=== PATIENT | female | born 1970 | race Caucasian/White ===

== ENCOUNTER → 2017-03-12 | Outpatient (CLI) | payer MEDICARE ==
--- NOTE | 2017-03-12 21:45 | PN ---
This is a 47-year-old female patient who is coming in for followup regarding narcolepsy and obstructive sleep apnea. The patient also has degenerative ( ) disorder and depression. During her latest evaluation in June of 2016 the patient had gotten more anxious and depressed. She was having anxiety attacks despite being on Buspar. I have recommended to her that she see a psychiatrist. Meanwhile, the patient was seen by her primary care physician, Dr. Rankin, and she was started on nortriptyline at a dose of 75 mg p.o. daily. Since that treatment initiation the patient has gained around 40 to 50 pounds. She is currently down to 10 mg, as she did not want to take the medication, mainly due to her weight gain. She is still on Buspar. She is also taking Adderall 30 mg 2 tablets in the morning, one in the evening, and this is mainly for narcolepsy treatment. 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 I am concerned that her obstructive sleep apnea is getting worse, especially with her 40- to 50-pound weight gain. The patient is not utilizing her CPAP ( ) she tried to go back on her CPAP unit and she failed to respond. I checked her machine, and she has not used it for the past 180 days. I went back to my earlier records. She was set at a pressure of 8 cm of water, and during her latest visit I switched her to an Auto CPAP mode with a pressure minimum of 4, maximum of 20, with an EPR of 3. She has an AirFit P10 nasal pillow. Despite all this adjustment, the patient is unable to tolerate the machine. She tells me that she is having feelings of suffocation. I tried out various pressures today in the office during my evaluation. I tried her on a pressure of 7, 8, 9 and 10. At the pressures of 9 and 10, the patient felt that the pressure was quite high, and at the pressures of 7 and below, she felt the pressure was too low. As such, I was unable to reach a compromise with her. I think she needs another CPAP titration to make further adjustments. BP is 109/66, pulse 93, respiration 16, temperature 98.3. Weight is 185. BMI is 31. EPWORTH score is 7. GENERAL APPEARANCE: Calm, comfortable. HEENT: Crowding of posterior pharynx. No goiter or neck mass. LUNGS: Clear to auscultation. HEART: Heart sounds are regular rate and rhythm. Normal S1, S2. ABDOMEN: Soft, nontender. No organomegaly. EXTREMITIES: No edema. No cyanosis or clubbing. IMPRESSION: 1. Narcolepsy without cataplexy, on Adderall 40 mg in the morning and 20 mg in the evening. 2. Obstructive sleep apnea; unable to tolerate CPAP machine. The patient has gained around 40 pounds over the past year or so; this was essentially drug-induced. 3. Generalized anxiety disorder. 4. Bipolar disorder/depression. 5. Amitriptyline-induced weight gain. 6. Chronic hypersomnia. 7. Chronic headaches. 8. Chronic pain. PLAN: 1. Encourage weight loss. 2. Eliminate amitriptyline. 3. Follow up with her primary care physician or Psychiatry regarding treatment of her anxiety/depression/bipolar disorder. 4. The patient obviously needs another CPAP titration to make adjustments on her CPAP machine and act accordingly. She is using an AirFit P10 nasal pillow; and different mask interfaces will be also evaluated and studied. 5. Continue Adderall without any dosage modifications. 6. Improve sleep hygiene measures. 7. Will continue to follow.
== END | disposition home or self-care (01) ==
LOC: SLEEP 14:14
PROVIDERS: ATTEND Internal Medicine Critical Care Medicine
DX: G47.419 Narcolepsy without cataplexy (principal); G47.33 Obstructive sleep apnea (adult) (pediatric); Z79.899 Other long term (current) drug therapy; F41.9 Anxiety disorder, unspecified; F32.9 Major depressive disorder, single episode, unspecified

== ENCOUNTER → 2018-04-25 | Outpatient (CLI) | payer MEDICARE | END | disposition home or self-care (01) | LOC: CPPFTMAIN 14:27 | PROVIDERS: ATTEND Otolaryngology | DX: J45.909 Unspecified asthma, uncomplicated (principal) | CPT/HCPCS: 94060; 94726; 94729 ==

== ENCOUNTER → 2019-08-04 | Outpatient (CLI) | payer MEDICARE, OTHER ==
--- NOTE | 2019-08-04 18:02 | PN ---
PROGRESS NOTE SLEEP CENTER PROGRESS NOTE: This is a followup for a 49-year-old female patient who has been diagnosed with a combination of obstructive sleep apnea and narcolepsy, type 2. The patient had her last evaluation here in the sleep center on 03/18/2017. I was trying to make adjustments on her CPAP unit back then to make her treatment more successful. Going back to my records dating back as early as 2013, it was becoming clear to me that the patient was not making an effort to utilize her CPAP. She had symptomatic obstructive sleep apnea and she had undergone successful CPAP titration. She was titrated to a CPAP pressure of 8. She was also tried on an APAP mode. Nevertheless, despite my ongoing efforts, she has not been compliant, and with each visitation she has made different excuses not to use her machine. As far as her narcolepsy, she was managed with stimulants; she was taking Adderall 30 mg two tablets in the morning and one tablet in the afternoon. I came to find out that I was renewing her medication over the past 2-1/2 years and she was taking it on a regular basis. She did not make any effort to come in to see me in followup on her narcolepsy and make sure the treatment was going well. Today she shows up; this appointment was made as we realized that the patient had not been seen in our office for almost 2-1/2 years. Upon further discussion it has become more clear to me that the patient's main visitation was to renew her Adderall medication. I reviewed the rest of the medication. The patient has been on Ativan, taking it on an as-needed basis for anxiety; this was given to her by Dr. Rankin. She was taking Requip 2 mg at bedtime, given to her by Dr. Rankin's office. On and off she is still using Ambien, and I am not sure who is giving her the medication. She is on Celexa for chronic anxiety and depression. The rest of her medication includes: 1. Nexium 40 mg p.o. daily. 2. Valtrex 1 gram daily. 3. Toprol-XL 25 mg p.o. daily. 4. Ventolin on an as-needed basis. 5. Tricor 145 mg p.o. daily. Her current Moorhead score is 8. She denies having any sleep paralysis, hallucinations or cataplexy. She feels very tired. She states that she is depressed and, according to her, for almost a year she did not leave the house, as she was feeling down and she was having significant low energy levels. She has also a multitude of complaints, including headache, hair loss, tiredness, fatigue, sleepiness, occasional insomnia and mood changes. PHYSICAL EXAMINATION: CURRENT VITAL SIGNS: Blood pressure 138/75, pulse 96, respirations 16, temperature 98.0. Weight is 171, height 5 feet 4 inches, BMI 28.7. Moorhead score is 8. GENERAL APPEARANCE: Calm, comfortable. HEAD: Atraumatic, normocephalic. NECK: Supple. No JVD. No goiter or neck masses. LUNGS: Clear to auscultation. HEART: Heart sounds are regular rate and rhythm. Normal S1, S2. No S3, S4. No murmurs. ABDOMEN: Soft, nontender. No organomegaly. EXTREMITIES: No edema. No cyanosis or clubbing. IMPRESSION: 1. Narcolepsy, type 2, without cataplexy. 2. Obstructive sleep apnea; noncompliant with CPAP therapy. 3. Chronic anxiety/depression/bipolar disorder. 4. Migraines. 5. Chronic restlessness in lower extremities. 6. Poor compliance. PLAN: I went back and looked at the records, and I am uncomfortable taking care of this patient from this point on. I really believe that she has not made an effort to use her CPAP regarding her obstructive sleep apnea. I think she is mainly into the newer medication, which includes Adderall for stimulation. She has also psychiatric issues, including anxiety and depression, and despite my earlier recommendations, she has not sought any psychiatric evaluation. She has not seen a psychiatrist for several years and obviously in this setting treating this patient with a stimulant medication in the setting of chronic psychiatric disorders without being monitored is not felt to be safe. I made a decision to give the patient another 2 additional months of Adderall, and meanwhile I asked her to establish herself with a sleep center in [facility]. I made the patient aware that she is not going to get any refills from my office; and for her to pursue treatment, she needs to go to an alternative sleep center. She is extremely noncompliant, and in a setting like this with her comorbidities I may not be able to provide any further care for her. I discussed this with her and she verbalized she understands my point of view. She needs to go back on her CPAP therapy and at the same time be treated appropriately for her narcolepsy if this is confirmed again by another evaluation. For that reason, I think it is reasonable. PRANAV / FAINA: [id number] /
== END ==
LOC: SLEEP 15:08
PROVIDERS: ATTEND Internal Medicine Critical Care Medicine
DX: G47.419 Narcolepsy without cataplexy (principal); G47.33 Obstructive sleep apnea (adult) (pediatric); F41.8 Other specified anxiety disorders; G43.909 Migraine, unspecified, not intractable, without status migrainosus; R45.1 Restlessness and agitation; Z99.89 Dependence on other enabling machines and devices; Z79.899 Other long term (current) drug therapy

== ENCOUNTER 2024-09-13 22:59 | Inpatient (IN) | payer BC, MEDICARE, OTHER ==
[2024-09-13] MEDS ORDERED: NALOXONE 0.4 MG/ML 1 ML VIAL IV PRN (23:07)
--- NOTE | 2024-09-13 23:14 | ED ---
Recheck HPI - General Chief Complaint: Urogenital Stated Complaint: Back pain Time Seen by Provider: 09/13/24 23:02 Source: patient, RN notes reviewed, old records reviewed Mode of arrival: EMS Limitations: no limitations - History of Present Illness Initial Comments: This is a 54 female accepted as a transfer for kidney stone with intractable pain 1 cm kidney stone with hydronephrosis with intractable pain, patient arrives to the emergency department with pain relatively well-controlled still complaining of flank pain MD Complaint: abnormal lab (Kidney stone with hydronephrosis) -: hour(s) Returns Today for: persistent/worsening pain related to initial visit Symptoms Since Prior Visit: worsening pain Treatments Prior to Arrival: Given Pain Meds on - Related Data Home Medications Medication Instructions Recorded Confirmed Citalopram Hydrobromide [CeleXA] 20 mg PO DAILY 09/14/24 09/14/24 Dextroamphetamine/Amphetamine 30 mg PO DAILY@1200 09/14/24 09/14/24 [Adderall] Dextroamphetamine/Amphetamine 60 mg PO DAILY 09/14/24 09/14/24 [Adderall] Esomeprazole Magnesium [NexIUM 20 mg PO DAILY 09/14/24 09/14/24 24Hr] Ibuprofen [Motrin] 800 mg PO Q8H PRN 09/14/24 09/14/24 LORazepam [Ativan] 0.5 - 1 mg PO DAILY 09/14/24 09/14/24 rOPINIRole HCL [Requip] 3 mg PO HS 09/14/24 09/14/24 Previous Rx's Medication Instructions Recorded Ketorolac [Toradol] 10 mg PO Q6HR PRN 7 Days #21 tab 09/15/24 Tamsulosin [Flomax] 0.4 mg PO DAILY 30 Days #30 cap 09/15/24 Allergies Allergy/AdvReac Type Severity Reaction Status Date / Time No Known Allergies Allergy Verified 09/14/24 16:09 Review of Systems ROS Statement: Those systems with pertinent positive or pertinent negative responses have been documented in the HPI. ROS Other: All systems not noted in ROS Statement are negative. Past Medical History Past Medical History: Fibromyalgia, GERD/Reflux, Hyperlipidemia, Musculoskeletal Disorder, Sleep Apnea/CPAP/BIPAP Additional Past Medical History / Comment(s): has DDD History of Any Multi-Drug Resistant Organisms: MRSA Date of last positivie culture/infection: 2003 MDRO Source:: rt arm /culture Past Surgical History: Ear Surgery, Hysterectomy, Tonsillectomy, Tubal Ligation Additional Past Surgical History / Comment(s): had an ovary removed, myringotomy, hemmeroid Past Anesthesia/Blood Transfusion Reactions: No Reported Reaction Past Psychological History: Bipolar Past Alcohol Use History: None Reported Past Drug Use History: None Reported - Past Family History Sister(s) Family Medical History: Cancer Additional Family Medical History / Comment(s): cervical General Exam General appearance: alert, in no apparent distress Head exam: Present: atraumatic, normocephalic, normal inspection Eye exam: Present: normal appearance, PERRL, EOMI. Absent: scleral icterus, conjunctival injection, periorbital swelling ENT exam: Present: normal exam, mucous membranes moist Neck exam: Present: normal inspection. Absent: tenderness, meningismus, lymphadenopathy Respiratory exam: Present: normal lung sounds bilaterally. Absent: respiratory distress, wheezes, rales, rhonchi, stridor Cardiovascular Exam: Present: regular rate, normal rhythm, normal heart sounds. Absent: systolic murmur, diastolic murmur, rubs, gallop, clicks GI/Abdominal exam: Present: soft, normal bowel sounds. Absent: distended, tenderness, guarding, rebound, rigid Extremities exam: Present: normal inspection, full ROM, normal capillary refill. Absent: tenderness, pedal edema, joint swelling, calf tenderness Back exam: Present: normal inspection Neurological exam: Present: alert, oriented X3, CN II-XII intact Psychiatric exam: Present: normal affect, normal mood Skin exam: Present: warm, dry, intact, normal color. Absent: rash Course Vital Signs 09/13/24 09/14/24 09/14/24 23:00 00:02 02:00 Temperature 97.9 F Pulse Rate 80 80 66 Respiratory 18 18 18 Rate Blood Pressure 146/89 118/72 114/78 O2 Sat by Pulse 96 95 96 Oximetry 09/14/24 09/14/24 09/14/24 05:00 06:03 07:20 Temperature 97.9 F Pulse Rate 66 75 84 Respiratory 18 18 18 Rate Blood Pressure 125/100 137/88 151/101 O2 Sat by Pulse 98 96 98 Oximetry - Reevaluation(s) Reevaluation #1: 09/13/24 23:11 Medical records reviewed Reevaluation #2: 09/13/24 23:11 Patient still with kidney stone pain here in the ER Reevaluation #3: 09/13/24 23:11 Patient informed of results and questions answered Reevaluation #4: Was pt. sent in by a medical professional or institution (NEAL Mejia, CUSTODY ASSISTANT, urgent care, hospital, or jail...) When possible be specific @ -no Did you speak to anyone other than the patient for history (EMS, parent, family, police, friend...)? What history was obtained from this source @ -no Did you review nursing and triage notes (agree or disagree)? Why? @ -agree Are old charts reviewed (outside hosp., previous admission, EMS record, old EKG, old radiological studies, urgent care reports/EKG's, jail records)? Report findings @ -yes Differential Diagnosis (chest pain, altered mental status, abdominal pain women, abdominal pain men, vaginal bleeding, weakness, fever, dyspnea, syncope, headache, dizziness, GI bleed, back pain, seizure, CVA, palpatations, mental health, musculoskeletal)? @ -prior EKG interpreted by me (3pts min.). @ -no X-rays interpreted by me (1pt min.). @ -no CT interpreted by me (1pt min.). @ -no U/S interpreted by me (1pt. min.). @ -no What testing was considered but not performed or refused? (CT, X-rays, U/S, labs)? Why? @ -none What meds were considered but not given or refused? Why? @ -none Did you discuss the management of the patient with other professionals (professionals i.e. NEAL Mejia, CUSTODY ASSISTANT, lab, RT, psych nurse, secondary social studies teacher, cello teacher, teacher, national insurance officer, case investigator)? Give summary @ -no Was smoking cessation discussed for >3mins.? @ -no Was critical care preformed (if so, how long)? @ -no Were there social determinants of health that impacted care today? How? (Homelessness, low income, unemployed, alcoholism, drug addiction, transportation, low edu. Level, literacy, decrease access to med. care, residential, rehab)? @ -none Was there de-escalation of care discussed even if they declined (Discuss DNR or withdrawal of care, Hospice)? DNR status @ -no What co-morbidities impacted this encounter? (DM, HTN, Smoking, COPD, CAD, Cancer, CVA, ARF, Chemo, Hep., AIDS, mental health diagnosis, sleep apnea, morbid obesity)? @ -none Was patient admitted / discharged? Hospital course, mention meds given and route, prescriptions, significant lab abnormalities, going to OR and other pertinent info. @ - 54 female to ER with kidney stone with hydronephrosis 1 cm kidney stone with intractable pain will admit for urology to see Admitted Undiagnosed new problem with uncertain prognosis? @ -no Drug Therapy requiring intensive monitoring for toxicity (Heparin, Nitro, Insulin, Cardizem)? @ -no Were any procedures done? @ -no Diagnosis/symptom? @ -Greater than 1 cm kidney stone with hydronephrosis Acute, or Chronic, or Acute on Chronic? @ -Acute Uncomplicated (without systemic symptoms) or Complicated (systemic symptoms)? @ -Complicated Side effects of treatment? @ -no Exacerbation, Progression, or Severe Exacerbation? @ -exacerbation Poses a threat to life or bodily function? How? (Chest pain, USA, DC, pneumonia, PE, COPD, DKA, ARF, appy, cholecystitis, CVA, Diverticulitis, Homicidal, Suicidal, threat to staff... and all critical care pts) @ -This was significant kidney stone Reevaluation #5: Differential Abdominal Pain Women: Appendicitis, Cholecystitis, diverticulosis, ischemic bowel, pancreatitis, hepatitis, UTI, gastroenteritis, AAA, incarcerated hernia, bowel obstruction, constipation, inflammatory bowel, hepatitis, peptic ulcer disease, splenic infarction, perforated viscus, vulvitis, ovarian torsion, PID, kidney stone, placenta abruption, this is not meant to be an all-inclusive list - Consultations Consultation #1: With [facility] who agrees to admit this patient Medical Decision Making - Medical Decision Making 54 female to ER with kidney stone with hydronephrosis 1 cm kidney stone with intractable pain will admit for urology to see - Lab Data Result diagrams: 09/15/24 04:18 09/15/24 04:18 Lab Results 09/14/24 09/14/24 Range/Units 06:00 06:00 WBC 7.4 (3.8-10.6) k/uL RBC 4.29 (3.80-5.40) m/uL Hgb 12.4 (11.4-16.0) gm/dL Hct 39.3 (34.0-46.0) % MCV 91.6 (80.0-100.0) fL MCH 28.8 (25.0-35.0) pg MCHC 31.4 (31.0-37.0) g/dL RDW 12.9 (11.5-15.5) % Plt Count 205 (150-450) k/uL MPV 7.3 Neutrophils % 56 % Lymphocytes % 32 % Monocytes % 7 % Eosinophils % 2 % Basophils % 1 % Neutrophils # 4.2 (1.3-7.7) k/uL Lymphocytes # 2.3 (1.0-4.8) k/uL Monocytes # 0.6 (0-1.0) k/uL Eosinophils # 0.2 (0-0.7) k/uL Basophils # 0.1 (0-0.2) k/uL Sodium 138 (137-145) mmol/L Potassium 3.8 (3.5-5.1) mmol/L Chloride 108 H (98-107) mmol/L Carbon Dioxide 24 (22-30) mmol/L Anion Gap 6 mmol/L BUN 12 (7-17) mg/dL Creatinine 0.86 (0.52-1.04) mg/dL Est GFR (CKD-EPI)AfAm 90 (>60 ml/min/1.73 sqM) Est GFR (CKD-EPI)NonAf 78 (>60 ml/min/1.73 sqM) Glucose 94 (74-99) mg/dL Calcium 8.5 (8.4-10.2) mg/dL Phosphorus 4.5 (2.5-4.5) mg/dL Magnesium 1.7 (1.6-2.3) mg/dL Total Bilirubin 1.5 H (0.2-1.3) mg/dL AST 19 (14-36) U/L ALT 21 (4-34) U/L Alkaline Phosphatase 70 (38-126) U/L Total Protein 6.2 L (6.3-8.2) g/dL Albumin 3.7 (3.5-5.0) g/dL - Radiology Data Radiology results: image reviewed (CT abd pelvis kidney stone 1cm) Disposition Clinical Impression: Kidney stone on right side, Hydronephrosis, Intractable abdominal pain Narrative: 1cm Kidney Stone Obstructing Disposition: ADMITTED IP TO THIS [facility] Condition: Stable Is patient prescribed a controlled substance at d/c from ED?: No Time of Disposition: 23:10
[2024-09-13] MEDS: HYDROmorphone 1 MG/ML 1 ML SYRINGE IVP STA (23:16)
[2024-09-13] MEDS: KETOROLAC 15 MG/ML 1 ML VIAL IVP STA (23:26)
[2024-09-13] MEDS: PANTOPRAZOLE 40 MG/10 ML VIAL IV SCH (23:28)
[2024-09-13] MEDS: SODIUM CHLORIDE 0.9% 1,000 ML IV SCH (23:31)
[2024-09-13] MEDS: LORazepam 2 MG/ML INJ IV STA (23:31)
[2024-09-14] MEDS: ONDANSETRON 4 MG/2 ML VIAL IVP PRN (05:15)
[2024-09-14] MEDS: HYDROmorphone 1 MG/ML 1 ML SYRINGE IVP PRN (05:18)
[2024-09-14 06:26] LABS: Basophils # (A) 0.1 k/uL (0-0.2); Basophils % (A) 1 %; Eosinophils # (A) 0.2 k/uL (0-0.7); Eosinophils % (A) 2 %; HCT 39.3 % (34.0-46.0); HGB 12.4 gm/dL (11.4-16.0); Lymphocytes # (A) 2.3 k/uL (1.0-4.8); Lymphocytes % (A) 32 %; MCH 28.8 pg (25.0-35.0); MCHC 31.4 g/dL (31.0-37.0); MCV 91.6 fL (80.0-100.0); Mean Platelet Volume 7.3; Monocytes # (A) 0.6 k/uL (0-1.0); Monocytes % (A) 7 %; Neutrophils # (A) 4.2 k/uL (1.3-7.7); Neutrophils % (A) 56 %; Platelet Count 205 k/uL (150-450); RBC 4.29 m/uL (3.80-5.40); RDW 12.9 % (11.5-15.5); WBC 7.4 k/uL (3.8-10.6)
[2024-09-14 06:40] LABS: ALT 21 U/L (4-34); AST 19 U/L (14-36); African American GFR (CKD) 90 (>60 ml/min/1.73 sqM); Albumin 3.7 g/dL (3.5-5.0); Alkaline Phosphatase 70 U/L (38-126); Anion Gap 6 mmol/L; Blood Urea Nitrogen 12 mg/dL (7-17); Calcium 8.5 mg/dL (8.4-10.2); Carbon Dioxide 24 mmol/L (22-30); Chloride 108 mmol/L (98-107); Glucose 94 mg/dL (74-99); Magnesium 1.7 mg/dL (1.6-2.3); Non-African American GFR(CKD) 78 (>60 ml/min/1.73 sqM); Phosphorus 4.5 mg/dL (2.5-4.5); Potassium 3.8 mmol/L (3.5-5.1); Sodium 138 mmol/L (137-145); Total Bilirubin 1.5 mg/dL (0.2-1.3); Total Protein 6.2 g/dL (6.3-8.2)
--- NOTE | 2024-09-14 08:25 | P.GSCN ---
History of Present Illness Consult date: 09/14/24 Reason for Consult: Right renal colic Requesting physician: Kimberley Banks History of present illness: The patient is a 54-year-old white female with a 2-month history of intermittent right renal colic. She denies any prior history of urolithiasis. CT scan in June 2024 showed evidence of right hydroureteronephrosis due to a 6 mm right proximal ureteral calculus. A 3 mm left renal calculus was also seen. She presented to [facility] yesterday with increased pain. CT scan showed marked right hydronephrosis due to a 1 cm right distal ureteral calculus. The left renal calculus measured 5 mm. Her renal function was normal, as was her serum calcium level. She was transferred to [facility] for further management, due to her intractable symptoms. Review of Systems - Constitutional Denies chills, Denies fever - Gastrointestinal Denies nausea, Denies vomiting - Genitourinary Genitourinary: Reports flank pain, Reports kidney stones, Denies dysuria, Denies hematuria Past Medical History Past Medical History: Fibromyalgia, GERD/Reflux, Hyperlipidemia, Musculoskeletal Disorder, Sleep Apnea/CPAP/BIPAP Additional Past Medical History / Comment(s): has DDD, kidney stones History of Any Multi-Drug Resistant Organisms: MRSA Year Discovered:: 2002 MDRO Source:: rt arm /culture Past Surgical History: Ear Surgery, Hysterectomy, Tonsillectomy, Tubal Ligation Additional Past Surgical History / Comment(s): had an ovary removed, myringotomy, hemmeroid Past Anesthesia/Blood Transfusion Reactions: No Reported Reaction Past Psychological History: Bipolar Additional Psychological History / Comment(s): hasn't been on meds for "a while" Smoking Status: Former smoker Past Alcohol Use History: None Reported Past Drug Use History: None Reported - Past Family History Sister(s) Family Medical History: Cancer Additional Family Medical History / Comment(s): cervical Medications and Allergies Home Medications Medication Instructions Recorded Confirmed Type Citalopram Hydrobromide [CeleXA] 20 mg PO DAILY 09/14/24 09/14/24 History Dextroamphetamine/Amphetamine 30 mg PO DAILY@1200 09/14/24 09/14/24 History [Adderall] Dextroamphetamine/Amphetamine 60 mg PO DAILY 09/14/24 09/14/24 History [Adderall] Esomeprazole Magnesium [NexIUM 20 mg PO DAILY 09/14/24 09/14/24 History 24Hr] Ibuprofen [Motrin] 800 mg PO Q8H PRN 09/14/24 09/14/24 History LORazepam [Ativan] 0.5 - 1 mg PO DAILY 09/14/24 09/14/24 History rOPINIRole HCL [Requip] 3 mg PO HS 09/14/24 09/14/24 History Allergies Allergy/AdvReac Type Severity Reaction Status Date / Time No Known Allergies Allergy Verified 09/14/24 07:19 Surgical - Exam Vital Signs Temp Pulse Resp BP Pulse Ox 97.9 F 80 18 146/89 96 09/13/24 23:00 09/13/24 23:00 09/13/24 23:00 09/13/24 23:00 09/13/24 23:00 - General well developed, well nourished, moderate distress - Neck no masses, trachea midline - Respiratory normal respiratory effort - Abdomen Soft, non-distended, no mass. Right-sided tenderness, no guarding or rebound. - Psychiatric oriented to time, oriented to person, oriented to place, speech is normal, memory intact Results - Labs 09/14/24 06:00 09/14/24 06:00 Abnormal Lab Results - Last 24 Hours (Table) 09/14/24 Range/Units 06:00 Chloride 108 H (98-107) mmol/L Total Bilirubin 1.5 H (0.2-1.3) mg/dL Total Protein 6.2 L (6.3-8.2) g/dL Diabetes panel 09/14/24 Range/Units 06:00 Sodium 138 (137-145) mmol/L Potassium 3.8 (3.5-5.1) mmol/L Chloride 108 H (98-107) mmol/L Carbon Dioxide 24 (22-30) mmol/L BUN 12 (7-17) mg/dL Creatinine 0.86 (0.52-1.04) mg/dL Glucose 94 (74-99) mg/dL Calcium 8.5 (8.4-10.2) mg/dL AST 19 (14-36) U/L ALT 21 (4-34) U/L Alkaline Phosphatase 70 (38-126) U/L Total Protein 6.2 L (6.3-8.2) g/dL Albumin 3.7 (3.5-5.0) g/dL Calcium panel 09/14/24 Range/Units 06:00 Calcium 8.5 (8.4-10.2) mg/dL Phosphorus 4.5 (2.5-4.5) mg/dL Albumin 3.7 (3.5-5.0) g/dL Pituitary panel 09/14/24 Range/Units 06:00 Sodium 138 (137-145) mmol/L Potassium 3.8 (3.5-5.1) mmol/L Chloride 108 H (98-107) mmol/L Carbon Dioxide 24 (22-30) mmol/L BUN 12 (7-17) mg/dL Creatinine 0.86 (0.52-1.04) mg/dL Glucose 94 (74-99) mg/dL Calcium 8.5 (8.4-10.2) mg/dL Adrenal panel 09/14/24 Range/Units 06:00 Sodium 138 (137-145) mmol/L Potassium 3.8 (3.5-5.1) mmol/L Chloride 108 H (98-107) mmol/L Carbon Dioxide 24 (22-30) mmol/L BUN 12 (7-17) mg/dL Creatinine 0.86 (0.52-1.04) mg/dL Glucose 94 (74-99) mg/dL Calcium 8.5 (8.4-10.2) mg/dL Total Bilirubin 1.5 H (0.2-1.3) mg/dL AST 19 (14-36) U/L ALT 21 (4-34) U/L Alkaline Phosphatase 70 (38-126) U/L Total Protein 6.2 L (6.3-8.2) g/dL Albumin 3.7 (3.5-5.0) g/dL - Imaging CT scan - abdomen: report reviewed Assessment and Plan (1) Calculus of ureter Current Visit: Yes Status: Acute Code(s): N20.1 - CALCULUS OF URETER SNOMED Code(s): 28001163 (2) Hydronephrosis with renal and ureteral calculous obstruction Current Visit: Yes Status: Acute Code(s): N13.2 - HYDRONEPHROSIS WITH RENAL AND URETERAL CALCULOUS OBSTRUCTION SNOMED Code(s): 837082384 Plan: The patient will undergo cystoscopy with right ureteral stent insertion later today to relieve her obstruction. Arrangements will then be made for her to undergo ureteroscopic removal of the calculus along with stent removal in 2 to 3 weeks. The rationale for this approach was discussed in detail with the patient. She has been made aware of potential risks, which include anesthesia, bleeding, infection, ureteral injury, and inability to successfully place the stent. Time with Patient: Greater than 30
[2024-09-14] MEDS: KETOROLAC 15 MG/ML 1 ML VIAL IVP SCH (12:39)
[2024-09-14] MEDS ORDERED: HYDROmorphone 1 MG/ML 1 ML SYRINGE IVP PRN ×2 (13:25→13:37)
--- NOTE | 2024-09-14 16:03 | P.HPIM ---
History of Present Illness H&P Date: 09/14/24 Chief Complaint: Flank pain Patient is a 54-year-old female with past medical history of GERD, hyperlipidemia, RACHEL on CPAP and 2-month history of intermittent right renal coli c presented to the ED yesterday with flank and abdominal pain. The right-sided flank and abdominal pain started 2 days ago. The pain is a 9 out of 10 severity and has been constant. She presented to [facility] 2 days ago where a CT scan showed mild right hydronephrosis due to 1 cm right distal ureteral calculus and left renal calculus measured 5 mm. She was transferred to the ER here at [facility] because of her intractable pain. She mentions about 2 months ago she had similar pain that was intermittent. At the time a CT scan showed right and left kidney stones with right hydroureteronephrosis. She also mentions passing 1 stone in the past couple of months. She denies any previous history of kidney stones. She also feels constipated and mentions her last bowel meant was 2 days ago. Denies fever, chills, shortness of breath, chest pain, palpitations, coughing, dysuria, hematuria, hematochezia, melena. ED documentation reviewed. In the ED she was treated with Dilaudid, ketorolac and lorazepam. Vitals on admission T 97.9 F, P 80 bpm, RR 18, BP 146/89, O2 sat 96 % on room air Labs on admission show WBC 7.4, hemoglobin 12.4, sodium 138, potassium 3.8, chloride 108, BUN 12, creatinine 0.86, total bilirubin 1.5, total protein 6.2 Review of systems: Pertinent positives and negatives as discussed in HPI, a complete review of systems was performed and all other systems are negative. PMH: GERD, hyperlipidemia, RACHEL on CPAP PSH: Hysterectomy, tonsillectomy, tubal ligation Allergies: NKDA Social history: Tobacco: Former smoker 14 pack years, quit in October Alcohol: Denies use Recreational drugs: Marijuana occasionally Travel: No recent travel history Sick contacts: None Physical examination: Vital signs reviewed General: in acute distress, appears at stated age, obese Derm: warm, dry, intact Head: atraumatic, normocephalic, symmetric Eyes: EOMI, anicteric sclera Mouth: no lip lesion, mucus membranes moist Cardiovascular: S1 S2 reg, no murmur Lungs: CTA bilateral, no rhonchi, no rales, no accessory muscle use Abdominal: soft, tender to palpation in the right flank Extremities: No cyanosis, clubbing, or pedal edema. Neuro: Alert, Oriented, Gross neurological examination did not reveal any focal deficits. Psych: well appearing, appropriate affect Assessment/Plan: Patient is a 54-year-old female with past medical history of GERD, hyperlipidemia, RACHEL on CPAP presented to the ED with right flank pain. She has been admitted for kidney stone and will undergo cystoscopy today. Active: #. Ureterolithiasis #. Intractable abdominal pain Continue IV fluids 0.9 normal saline 130 mL/h Continue ketorolac 15 mg IVP every 6 hours as needed and Dilaudid 1 mg IVP every 6 hours as needed for pain management Continue ondansetron 4 mg IVP every 8 hours as needed Started on Tamsulosin 0.4 mg p.o. daily Cystoscopy and stent placement today per urology Urology is following Chronic: #. Anxiety/depression Continue citalopram 20 mg p.o. daily F: 0.9 normal saline 130 mL/h E: Replete as required N: NPO diet A: Ambulatory DVT prophylaxis: Lovenox 40 mg SQ daily GI prophylaxis: Pantoprazole 40 mg IV daily The patient is admitted with an anticipated less than 2 midnight stay for evaluation of flank pain CODE STATUS: Full code Discussed with: Patient Anticipated discharge place: Home Attestation I have seen and examined this patient with my resident , discussed the same with the resident/INNA, and agree with the dictator's assessment and plan as written Dr. Giovany martinez Past Medical History Past Medical History: Fibromyalgia, GERD/Reflux, Hyperlipidemia, Musculoskeletal Disorder, Sleep Apnea/CPAP/BIPAP Additional Past Medical History / Comment(s): has DDD, kidney stones History of Any Multi-Drug Resistant Organisms: MRSA Date of last positivie culture/infection: 2002 MDRO Source:: rt arm /culture Past Surgical History: Ear Surgery, Hysterectomy, Tonsillectomy, Tubal Ligation Additional Past Surgical History / Comment(s): had an ovary removed, myringotomy, hemmeroid Past Anesthesia/Blood Transfusion Reactions: No Reported Reaction Past Psychological History: Bipolar Additional Psychological History / Comment(s): hasn't been on meds for "a while" Smoking Status: Former smoker Past Alcohol Use History: None Reported Past Drug Use History: None Reported - Past Family History Sister(s) Family Medical History: Cancer Additional Family Medical History / Comment(s): cervical Medications and Allergies Home Medications Medication Instructions Recorded Confirmed Type Citalopram Hydrobromide [CeleXA] 20 mg PO DAILY 09/14/24 09/14/24 History Dextroamphetamine/Amphetamine 30 mg PO DAILY@1200 09/14/24 09/14/24 History [Adderall] Dextroamphetamine/Amphetamine 60 mg PO DAILY 09/14/24 09/14/24 History [Adderall] Esomeprazole Magnesium [NexIUM 20 mg PO DAILY 09/14/24 09/14/24 History 24Hr] Ibuprofen [Motrin] 800 mg PO Q8H PRN 09/14/24 09/14/24 History LORazepam [Ativan] 0.5 - 1 mg PO DAILY 09/14/24 09/14/24 History rOPINIRole HCL [Requip] 3 mg PO HS 09/14/24 09/14/24 History Allergies Allergy/AdvReac Type Severity Reaction Status Date / Time No Known Allergies Allergy Verified 09/14/24 16:09 Physical Exam Vitals: Vital Signs Temp Pulse Pulse Resp BP BP Pulse Ox 09/14/24 12:31 97.4 F L 67 18 155/77 96 09/14/24 07:30 97.5 F L 82 17 149/85 96 09/14/24 07:20 97.9 F 84 18 151/101 98 09/14/24 06:03 75 18 137/88 96 09/14/24 05:00 66 18 125/100 98 09/14/24 02:00 66 18 114/78 96 09/14/24 00:02 80 18 118/72 95 09/13/24 23:00 97.9 F 80 18 146/89 96 Intake and Output 09/14/24 09/14/24 09/14/24 06:59 14:59 22:59 Other: Voiding Method Toilet Toilet Diaper Incontinent Weight 83.915 kg 83.915 kg Results CBC & Chem 7: 09/14/24 06:00 09/15/24 04:18 Labs: Abnormal Lab Results - Last 24 Hours (Table) 09/14/24 Range/Units 06:00 Chloride 108 H (98-107) mmol/L Total Bilirubin 1.5 H (0.2-1.3) mg/dL Total Protein 6.2 L (6.3-8.2) g/dL Thrombosis Risk Factor Assmnt - Choose All That Apply Any of the Below Risk Factors Present?: Yes Each Factor Represents 1 point: Age 41-60 years Other Risk Factors: No Other congenital or acquired thrombophilia - If yes, enter type in comment: No Thrombosis Risk Factor Assessment Total Risk Factor Score: 1 Thrombosis Risk Factor Assessment Level: Low Risk
[2024-09-14] MEDS: FAMOTIDINE 20 MG/2 ML VIAL IV STA (16:18)
[2024-09-14] MEDS: DEXAMETHASONE SOD PHOSPHATE 4 MG/ML 1 ML VIAL IVP STA (16:19)
[2024-09-14] MEDS ORDERED: MIDAZOLAM 2 MG/2 ML VIAL ONE (16:29)
[2024-09-14] MEDS ORDERED: LIDOCAINE 1% INJ 10MG/ML (20 ML MDV) ONE (16:29)
[2024-09-14] MEDS ORDERED: ceFAZolin 1 GM/50 ML BAG (PMX) ONE (16:29)
[2024-09-14] MEDS ORDERED: fentaNYL (PF) 50 MCG/ML 2 ML AMP ONE (16:29)
[2024-09-14] MEDS ORDERED: KETOROLAC 15 MG/ML 1 ML VIAL ONE (16:29)
[2024-09-14] MEDS ORDERED: PROPOFOL 10 MG/ML 20 ML VIAL IV ONE (16:29)
[2024-09-14] MEDS: IV FLUID CONTINUATION 1,000 ML IV ONE ×2 (16:31→18:07)
[2024-09-14] MEDS: SODIUM CHLORIDE 0.9% 50 ML with ceFAZolin 2,000 MG IV ONE (16:40)
--- NOTE | 2024-09-14 17:09 | P.OP ---
Date of Procedure: 09/14/24 Preoperative Diagnosis: Right hydronephrosis secondary to right ureteral calculus Postoperative Diagnosis: Same Procedure(s) Performed: Cystoscopy, right ureteral stent insertion Anesthesia: RHIANNON Surgeon: Armin Orellana Estimated Blood Loss (ml): 0 IV fluids (ml): 400 Pathology: none sent Condition: stable Disposition: PACU Indications for Procedure: The patient is a 54-year-old white female with a 2-month history of intermittent right renal colic. She denies any prior history of urolithiasis. CT scan in June 2024 showed evidence of right hydroureteronephrosis due to a 6 mm right proximal ureteral calculus. A 3 mm left renal calculus was also seen. She presented to [facility] yesterday with increased pain. CT scan showed marked right hydronephrosis due to a 1 cm right distal ureteral calculus. The left renal calculus measured 5 mm. Her renal function was normal, as was her serum calcium level. She was transferred to [facility] for further management, due to her intractable symptoms, and she now comes for stent ins ertion. Operative Findings: Radio-opaque, obstructing right distal ureteral calculus. Description of Procedure: The patient was taken to the operating room and placed in the dorsolithotomy position, with legs supported in Jostin stirrups. The external genitalia was prepped and draped sterilely. The 30 lens was used to introduce the 22-Wallisian Stortz cystoscopic sheath through the urethra and into the bladder under direct vision. The bladder was examined in its entirety. Both ureteral orifices were of normal anatomic location and configuration, and clear urine effluxed from both. No tumors or foreign bodies were seen. A 0.035 inch Glidewire was passed through the cystoscope. The right ureteral orifice was cannulated, and the Glidewire was slowly advanced up to the calculus, which was radiopaque and located several centimeters above the ureterovesical junction. With some manipulation, it was possible to advance the Glidewire beyond the calculus and up to the renal pelvis, where it coiled. A 24 cm, 6-Wallisian double-J ureteral stent was placed over the wire. Proper stent positioning was verified fluoroscopically and endoscopically. The bladder was emptied and the cystoscope removed. The patient tolerated the procedure well and was taken to the recovery room in stable condition.
[2024-09-15 07:19] VITALS: RESP 16
--- NOTE | 2024-09-15 09:01 | FL ---
EXAMINATION TYPE: FL guidance operating room DATE OF EXAM: 09/14/2024 5:16 PM COMPARISON: Pre Operative Images if available both CT/MRI or plain film CLINICAL INDICATION: Female, 54 years old with history of cysto w/ stent; TECHNIQUE: FL guidance operating room, multiple fluoroscopic images provided for procedure. Total fluoroscopy time: 13.5 seconds Total submitted images to PACS: 1 DAP: 1.6037 mGym2 Gycm2 uGym2 cGycm2 or equivalent. FINDINGS: Multiple intraoperative fluoroscopic images were taken resulting in ureteral stent placement with sup erior pigtail in appropriate position projecting over the renal pelvis. No immediate intraoperative c omplication. Multilevel degeneration changes throughout the spine. IMPRESSION: 1. No evidence for intraoperative complication. 2. Please see the operative/procedural note for further details. [facility], , 09/15/2024 8:59 AM
[2024-09-15 09:07] LABS: BUN/Creat Ratio 14.71 Ratio (12.00-20.00); Blood Urea Nitrogen 10.3 mg/dL (9.0-27.0); Calcium 8.7 mg/dL (8.7-10.3); Carbon Dioxide 21.5 mmol/L (21.6-31.8); Chloride 109 mmol/L (96-109); Glucose 165 mg/dL (70-110); Potassium 4.3 mmol/L (3.5-5.5); Sodium 141 mmol/L (135-145)
[2024-09-15 10:15] LABS: HCT 36.8 % (37.2-46.3); HGB 11.6 g/dL (12.0-15.0); MCH 29.3 pg (27.0-32.0); MCHC 31.5 g/dL (32.0-37.0); MCV 92.9 FL (80.0-97.0); Mean Platelet Volume 11.2 FL (9.5-12.2); NRBC Per 100 WBC 0 X 10*3/uL (0.00-0.01); Platelet Count 228 X 10*3/uL (140-440); RBC 3.96 X 10*6/uL (4.10-5.20); RDW 12.7 % (11.5-14.5); WBC 9.04 X 10*3/uL (4.50-10.00)
[2024-09-15] MEDS: CITALOPRAM HYDROBROMIDE 20 MG TAB PO SCH (10:25)
[2024-09-15] MEDS: ENOXAPARIN 40 MG/0.4 ML SYRINGE SQ SCH (10:25)
[2024-09-15] MEDS: TAMSULOSIN 0.4 MG CAP.ER.24H PO SCH (10:25)
[2024-09-15 12:14] VITALS: BP 114/65; PULSE 85; TEMP 98.5
--- NOTE | 2024-09-15 12:45 | P.DS ---
Providers Date of admission: 09/14/24 13:25 Expected date of discharge: 09/15/24 Attending physician: Kimberley Banks Consults: 09/13/24 23:07 Consult Physician Routine Consulting Provider: Armin Orellana Consult Reason/Comments: 1cmStoneHydronephrosis Do you want consulting provider notified?: Yes Primary care physician: Jordin Monsivais DO Hospital Course: Discharge diagnosis: Ureterolithiasis Intractable abdominal pain S/p cystoscopy and right ureteral stent insertion Anxiety/depression Hospital Course: Patient is a 54-year-old female with past medical history of GERD, hyperlipidemia, RACHEL on CPAP and 2-month history of intermittent right renal colic presented to the ED yesterday with flank and abdominal pain. The right-sided flank and abdominal pain started 2 days ago. The pain is a 9 out of 10 severity and has been constant. She presented to [facility] 2 days ago where a CT scan showed mild right hydronephrosis due to 1 cm right distal ureteral calculus and left renal calculus measured 5 mm. She was transferred to the ER here at [facility] because of her intractable pain. She mentions about 2 months ago she had similar pain that was intermittent. At the time a CT scan showed right and left kidney stones with right hydroureteronephrosis. She also mentions passing 1 stone in the past couple of months. She denies any previous history of kidney stones. She also feels constipated and mentions her last bowel meant was 2 days ago. Denies fever, chills, shortness of breath, chest pain, palpitations, coughing, dysuria, hematuria, hematochezia, melena.Vitals on admission T 97.9 F, P 80 bpm, RR 18, BP 146/89, O2 sat 96 % on room air.Labs on admission show WBC 7.4, hemoglobin 12.4, sodium 138, potassium 3.8, chloride 108, BUN 12, creatinine 0.86, total bilirubin 1.5, total protein 6.2. In the ED she was treated with Dilaudid, ketorolac and lorazepam. 09/15/24: Patient seen and examined at bedside today. She had a cystoscopy and right ureteral stent insertion yesterday. Patient seen at bedside today and is feeling good and excited about discharge. Patient will be discharged today and is given a script for ketorolac and tamsulosin. Patient is given a handout for kidney stones, cystoscopy, ureteral stent placement and is advised to be compliant with medications. Patient is advised to follow-up with PCP in 1-2 days and urology in 1 week. Vital signs are reviewed and stable General: in acute distress, appears at stated age, obese Derm: warm, dry, intact Head: atraumatic, normocephalic, symmetric Eyes: EOMI, anicteric sclera Mouth: no lip lesion, mucus membranes moist Cardiovascular: S1 S2 reg, no murmur Lungs: CTA bilateral, no rhonchi, no rales, no accessory muscle use Abdominal: soft, tender to palpation in the lower abdomen Extremities: No cyanosis, clubbing, or pedal edema. Neuro: Alert, Oriented, Gross neurological examination did not reveal any focal deficits. Psych: well appearing, appropriate affect A total of 30 minutes of time were spent preparing this complex discharge summary. Patient was discharged on 09/15/2024 at 1300. Attestation I have seen and examined this patient with my resident , discussed the same with the resident/INNA, and agree with the dictator's assessment and plan as written Dr. Giovany martinez Patient Condition at Discharge: Stable Plan - Discharge Summary New Discharge Prescriptions: New Tamsulosin [Flomax] 0.4 mg PO DAILY 30 Days #30 cap Ketorolac [Toradol] 10 mg PO Q6HR PRN 7 Days #21 tab PRN Reason: Pain Continue rOPINIRole HCL [Requip] 3 mg PO HS LORazepam [Ativan] 0.5 - 1 mg PO DAILY Ibuprofen [Motrin] 800 mg PO Q8H PRN PRN Reason: Pain Dextroamphetamine/Amphetamine [Adderall] 30 mg PO DAILY@1200 Esomeprazole Magnesium [NexIUM 24Hr] 20 mg PO DAILY Dextroamphetamine/Amphetamine [Adderall] 60 mg PO DAILY Citalopram Hydrobromide [CeleXA] 20 mg PO DAILY Discharge Medication List Citalopram Hydrobromide [CeleXA] 20 mg PO DAILY 09/14/24 [History] Dextroamphetamine/Amphetamine [Adderall] 30 mg PO DAILY@1200 09/14/24 [History] Dextroamphetamine/Amphetamine [Adderall] 60 mg PO DAILY 09/14/24 [History] Esomeprazole Magnesium [NexIUM 24Hr] 20 mg PO DAILY 09/14/24 [History] Ibuprofen [Motrin] 800 mg PO Q8H PRN 09/14/24 [History] LORazepam [Ativan] 0.5 - 1 mg PO DAILY 09/14/24 [History] rOPINIRole HCL [Requip] 3 mg PO HS 09/14/24 [History] Ketorolac [Toradol] 10 mg PO Q6HR PRN 7 Days #21 tab 09/15/24 [Rx] Tamsulosin [Flomax] 0.4 mg PO DAILY 30 Days #30 cap 09/15/24 [Rx] Follow up Appointment(s)/Referral(s): Jordin Monsivais DO [Primary Care Provider] - 1-2 days (please call the office to schedule a follow up appointment.) Armin Orellana MD [STAFF PHYSICIAN] - 10/08/24 (appointment for stent removal.) Patient Instructions/Handouts: Ketorolac (By mouth), Tamsulosin (By mouth), Kidney Stones (DC), Cystoscopy (DC), Ureteral Stent Placement (DC) Discharge Disposition: HOME SELF-CARE
--- NOTE | 2024-09-15 13:38 | P.PN ---
Subjective Progress Note Date: 09/15/24 No acute overnight event, she is status post right-sided stent insertion. Denies any flank pain. Denies any gross materia or dysuria at this time Objective - Vital Signs Vital signs: Vital Signs Temp 98.5 F 09/15/24 12:02 Pulse 85 09/15/24 12:02 Resp 16 09/15/24 12:02 BP 114/65 09/15/24 12:02 Pulse Ox 96 09/15/24 12:02 FiO2 Intake & Output 09/14/24 09/15/24 09/15/24 18:59 06:59 18:59 Intake Total 1150 Output Total 0 Balance 1150 Weight 83.915 kg Intake: IV 1150 Output: Estimated Blood Loss 0 Other: Voiding Method Toilet Toilet Toilet Diaper Incontinent # Voids 3 1 - Constitutional General appearance: Present: no acute distress - Gastrointestinal General gastrointestinal: Present: soft. Absent: distended, tenderness - Psychiatric Psychiatric: Present: A&O x's 3 - Labs CBC & Chem 7: 09/15/24 04:18 09/15/24 04:18 Labs: Abnormal Lab Results - Last 24 Hours (Table) 09/15/24 09/15/24 Range/Units 04:18 04:18 RBC 3.96 L (4.10-5.20) X 10*6/uL Hgb 11.6 L (12.0-15.0) g/dL Hct 36.8 L (37.2-46.3) % MCHC 31.5 L (32.0-37.0) g/dL Carbon Dioxide 21.5 L (21.6-31.8) mmol/L Glucose 165 H (70-110) mg/dL Assessment and Plan Assessment: 54-year-old female status post right-sided stent insertion by Dr. Orellana yesterday. -She is okay for discharge from urology standpoint, she will be set up for outpatient right-sided ureteroscopy with holmium laser
== END 2024-09-15 14:35 | disposition home or self-care (01) | DRG 661 ==
LOC: EC 22:59 → 5NMEDONC 23:08 → OBSVTOIN 09-14 13:25
PROVIDERS: ADMIT Hospitalist; ATTEND Hospitalist
PROC: 0T768DZ Dilation of Right Ureter with Intraluminal Device, Via Natural or Artificial Opening Endoscopic (ICD-10-PCS; principal; 2024-09-14 07:30)
DX: N13.2 Hydronephrosis with renal and ureteral calculous obstruction (principal); F32.A Depression, unspecified; F41.9 Anxiety disorder, unspecified; K21.9 Gastro-esophageal reflux disease without esophagitis; Z87.891 Personal history of nicotine dependence; Z86.14 Personal history of Methicillin resistant Staphylococcus aureus infection; Z87.442 Personal history of urinary calculi; Z79.899 Other long term (current) drug therapy
CPT/HCPCS: 80048; 80053; 83735; 84100; 85025; 85027; 96361; 96374; 96375; 99285

== ENCOUNTER 2024-10-08 10:13 | Day surgery (SDC) | payer MEDICARE ==
--- NOTE | 2024-10-08 07:48 | P.GSHP ---
History of Present Illness H&P Date: 10/08/24 Chief Complaint: Right renal colic The patient is a 54-year-old white female who presented last month with a 2- month history of intermittent right renal colic. She denied any prior history of urolithiasis. CT scan in June 2024 showed evidence of right hydroureteronephrosis due to a 6 mm right proximal ureteral calculus. A 3 mm left renal calculus was also seen. Repeat CT scan last month showed marked right hydronephrosis due to a 1 cm right distal ureteral calculus. The left renal calculus measured 5 mm. Her renal function was normal, as was her serum calcium level. She underwent right ureteral stent insertion. She now comes for ureteroscopic removal of the right ureteral calculus. - Constitutional Constitutional: Denies chills, Denies fever - Gastrointestinal Gastrointestinal: Denies nausea, Denies vomiting - Genitourinary (Female) Genitourinary: Reports flank pain, Reports kidney stones, Denies dysuria Past Medical History Past Medical History: Fibromyalgia, GERD/Reflux, Hyperlipidemia, Musculoskeletal Disorder, Sleep Apnea/CPAP/BIPAP Additional Past Medical History / Comment(s): has DDD, kidney stones History of Any Multi-Drug Resistant Organisms: MRSA Date of last positivie culture/infection: 2002 MDRO Source:: rt arm /culture Past Surgical History: Ear Surgery, Hysterectomy, Tonsillectomy, Tubal Ligation Additional Past Surgical History / Comment(s): had an ovary removed, myringotomy, hemorrhoids Past Anesthesia/Blood Transfusion Reactions: No Reported Reaction Past Psychological History: Anxiety, Bipolar, Panic Disorder Additional Psychological History / Comment(s): hasn't been on meds for "a while" Smoking Status: Former smoker Past Alcohol Use History: None Reported Additional Past Alcohol Use History / Comment(s): Smoked 1ppd from age of [age] Past Drug Use History: Marijuana Additional Drug Use History / Comment(s): aware to refrain 24 hrs prior to procedure - Past Family History Sister(s) Family Medical History: Cancer Additional Family Medical History / Comment(s): cervical Brother(s) Family Medical History: Cancer Additional Family Medical History / Comment(s): Lung CA w/mets Medications and Allergies Home Medications Medication Instructions Recorded Confirmed Type Dextroamphetamine/Amphetamine 30 mg PO DAILY@1200 09/14/24 10/06/24 History [Adderall] Dextroamphetamine/Amphetamine 60 mg PO DAILY 09/14/24 10/06/24 History [Adderall] Esomeprazole Magnesium [NexIUM 40 mg PO DAILY 09/14/24 10/06/24 History 24Hr] Ibuprofen [Motrin] 800 mg PO Q8H PRN 09/14/24 10/06/24 History LORazepam [Ativan] 0.5 - 1 mg PO DAILY 09/14/24 10/06/24 History rOPINIRole HCL [Requip] 3 mg PO HS 09/14/24 10/06/24 History Ketorolac [Toradol] 10 mg PO Q6HR PRN 7 Days #21 tab 09/15/24 10/06/24 Rx Tamsulosin [Flomax] 0.4 mg PO DAILY 30 Days #30 cap 09/15/24 10/06/24 Rx Ciprofloxacin HCl [Cipro] 500 mg PO BID 10/06/24 10/06/24 History Allergies Allergy/AdvReac Type Severity Reaction Status Date / Time No Known Allergies Allergy Verified 10/06/24 09:56 Surgical - Exam - General well developed, well nourished, no distress - Respiratory normal respiratory effort - Abdomen Soft, no mass. Right-sided tenderness, no guarding or rebound. - Genitourinary normal external genitalia - Psychiatric oriented to time, oriented to person, oriented to place, speech is normal, memory intact Assessment and Plan (1) Calculus of ureter Status: Acute Code(s): N20.1 - CALCULUS OF URETER SNOMED Code(s): 73389376 Plan: Cystoscopy, right ureteral stent removal, right ureteroscopy with Holmium laser lithotripsy and stone basketing. The procedure has been reviewed in detail with the patient. She has been made aware of potential risks, which include anesthesia, bleeding, infection, inability to remove the calculus, and ureteral injury.
[~2024-10-08 10:13] MED LIST: HYDROmorphone 0.5 MG/0.5 ML SYRINGE IVP PRN
--- NOTE | 2024-10-08 10:47 | XR ---
EXAMINATION TYPE: XR KUB DATE OF EXAM: 10/08/2024 10:28 AM COMPARISON: Noner CLINICAL INDICATION: Female, 54 years old with history of stone placement DOS 10/08/24; [facility] TECHNIQUE: One radiographic view of the abdomen was obtained. FINDINGS: The bowel gas pattern is nonspecific without dilated loops of small or large bowel. . Fecal material and gas are demonstrated throughout the colon and rectum. There is no evidence for organome valdo or pneumoperitoneum. The osseous structures are intact. Right ureteral stent with superior and inferior pigtails in appropriate position. Right renal calculus not well appreciated due to stool. M ultilevel degeneration changes spine. 7 mm calcification projects over the distal right ureteral path . IMPRESSION: Right ureteral stent in place in appropriate position. 7 mm stone projects over the right pelvis poss ibly in the ureter. Right renal calculus not well appreciated. [facility], , 10/08/2024 10:45 AM
[2024-10-08] MEDS: LACTATED RINGERS 1,000 ML IV SCH (11:06)
[2024-10-08] MEDS: IV FLUID CONTINUATION 1,000 ML IV ONE (11:06)
[2024-10-08] MEDS: ONDANSETRON 4 MG/2 ML VIAL IVP ONE (11:07)
[2024-10-08] MEDS: DEXAMETHASONE SOD PHOSPHATE 4 MG/ML 1 ML VIAL IV ONE (11:07)
[2024-10-08] MEDS ORDERED: LIDOCAINE 1% INJ 10MG/ML (20 ML MDV) ONE (12:01)
[2024-10-08] MEDS ORDERED: MIDAZOLAM 2 MG/2 ML VIAL ONE (12:01)
[2024-10-08] MEDS ORDERED: fentaNYL (PF) 50 MCG/ML 2 ML AMP ONE (12:01)
[2024-10-08] MEDS ORDERED: PHENYLEPHRINE-0.9% NACL SYG 1,000 MCG/10 ML SYRINGE ONE (12:01)
[2024-10-08] MEDS ORDERED: SUCCINYLCHOLINE CHLORIDE 200 MG/10 ML VIAL IV ONE (12:01)
[2024-10-08] MEDS ORDERED: PROPOFOL 10 MG/ML 20 ML VIAL IV ONE (12:01)
--- NOTE | 2024-10-08 12:47 | P.OP ---
Date of Procedure: 10/08/24 Preoperative Diagnosis: Right ureteral calculus Postoperative Diagnosis: Same Procedure(s) Performed: Cystoscopy, right ureteral stent removal, right ureteroscopy with Holmium laser lithotripsy Anesthesia: RHIANNON Surgeon: Armin Orellana Estimated Blood Loss (ml): 0 IV fluids (ml): 300 Pathology: other (Right ureteral calculus fragments, sent for chemical analysis) Condition: stable Disposition: PACU Indications for Procedure: The patient is a 54-year-old white female who presented last month with a 2- month history of intermittent right renal colic. She denied any prior history of urolithiasis. CT scan in June 2024 showed evidence of right hydro ureteronephrosis due to a 6 mm right proximal ureteral calculus. A 3 mm left renal calculus was also seen. Repeat CT scan last month showed marked right hydronephrosis due to a 1 cm right distal ureteral calculus. The left renal calculus measured 5 mm. Her renal function was normal, as was her serum calcium level. She underwent right ureteral stent insertion. She now comes for ureteroscopic removal of the right ureteral calculus. Operative Findings: Right distal ureteral calculus, fragmented and removed completely. Description of Procedure: The patient was taken to the operating room and placed in the dorsolithotomy position, with legs supported in Jostin stirrups. The external genitalia was prepped and draped sterilely. The 30 lens was used to introduce the 21-Upper Sor[place] Patiño cystoscopic sheath through the urethra and into the bladder under direct vision. The bladder was examined in its entirety. No abnormalities were seen. Grasping forceps were used to grasp the distal end of the right ureteral stent, which was removed along with the cystoscope. The Patiño semirigid ureteroscope was advanced into the bladder, and the right ureteral orifice was cannulated. The ureteroscope was slowly advanced under direct vision, up to the calculus. The 272 micron Holmium laser probe was passed through the ureteroscope, and lithotripsy was performed, utilizing a dusting mode. Calculus fragments passed distally into the bladder. Inspection of the ureter showed slight edema where the calculus was impacted, but the ureter was otherwise unremarkable. There were no residual calculus fragments, and no evidence of ureteral trauma. After removing the ureteroscope, the cystoscope was replaced into the bladder. Calculus fragments were removed from the bladder and sent for chemical analysis. The bladder was emptied and the cystoscope removed. The patient tolerated the procedure well and was taken to the recovery room in stable condition. ALYCE DORADONitish Report: Procedure Acuity: Elective Stone Size and Location: 8 mm, right distal ureter Ureteral Dilation: No Ureteral Access Sheath Used: No Stone Sent for Analysis: Yes All Stones/Fragments Were Removed: Yes Complications: No Preoperative Antibiotics Given: Yes Stent Placed: No Discharge Medications: None
[2024-10-08 12:58] VITALS: TEMP 98
[2024-10-08 13:08] VITALS: RESP 16
[2024-10-08 14:03] VITALS: BP 135/77; PULSE 70
== END 2024-10-08 14:20 | disposition home or self-care (01) ==
LOC: OR 10:13
PROVIDERS: ATTEND Urology
DX: N13.2 Hydronephrosis with renal and ureteral calculous obstruction (principal); E78.5 Hyperlipidemia, unspecified; G47.33 Obstructive sleep apnea (adult) (pediatric); M79.7 Fibromyalgia; G47.30 Sleep apnea, unspecified; K21.9 Gastro-esophageal reflux disease without esophagitis; J45.909 Unspecified asthma, uncomplicated; G89.29 Other chronic pain; F31.9 Bipolar disorder, unspecified; F41.0 Panic disorder [episodic paroxysmal anxiety]; Z79.899 Other long term (current) drug therapy; Z87.891 Personal history of nicotine dependence; Z86.14 Personal history of Methicillin resistant Staphylococcus aureus infection; Z96.0 Presence of urogenital implants
CPT/HCPCS: 52353; 82365; 74018; C1769; J2250; J0330; J1100; J0690; J2405; J2003; J3010; J2704; J2371